=== PATIENT | male | born 1950 | race Caucasian/White ===

== ENCOUNTER → 2016-08-17 | Day surgery (SDC) | payer MEDICARE ==
[~2016-08-17] VITALS: Ht 180.3 cm; Wt 86.2 kg
[~2016-08-17] MED LIST: ACET-704 PO; AMLO5TAB2 PO; BUPIVACAINE MPF 0.5% 30 ML VIAL. ONE; DESFLURANE 61 TO 120 MINUTES IH ONE; DEXAMETHASONE SOD PHOS 20 MG/5 ML VIAL. ONE; ESMOLOL 100 MG/10 ML VIAL. IV ONE; HYDROcodone/APAP 5/325MG 1 TAB TABLET PO ONE; HYDROmorphone 2 MG/ML VIAL IV PRN; IBUP-1027 PO; IV RINGERS,LACTATED 1000ML 1,000 ML IV SCH; LIDOCAINE 1% 1 ML SYRINGE. ID PRN; LIDOCAINE 1% PF 30 ML VIAL. ONE; LIDOCAINE 2% PF Vial for OR 5 ML VIAL. ONE; LISI2.5T PO; MIDAZOLAM HCL/PF 2 MG/2 ML VIAL. ONE; MULT-460 PO; ONDANSETRON PF 4 MG/2 ML VIAL. IV PRN; ONDANSETRON PF 4 MG/2 ML VIAL. ONE; PHENYLEPHRINE in 0.9% NACL PF 1 MG/10 ML DISP.SYRIN. IV ONE; PROCHLORPERAZINE 10 MG/2 ML VIAL. IV PRN; PROPOFOL 20 ML IV ONE; fentaNYL PF VIAL 100 MCG/2 ML VIAL IV PRN; fentaNYL PF VIAL 100 MCG/2 ML VIAL ONE
--- NOTE | 2016-08-17 09:20 | DISCH ---
DISCHARGE INSTRUCTIONS Condition on Discharge Condition on Discharge: Stable Activity After Discharge Activity Instructions for Disc: No restrictions, Resume previous activity, Other, see below Other activity instructions: NWB RLE Bathing Instructions: Shower-keep dressing dry Weight Bearing Status after Di: Non weight bearing Diet after Discharge Diet after Discharge: Regular Wound Incision Care Wound/Incision Care: Ice to area for comfort, Keep wound/cast CDI, Keep wound elevated, Do not change dressing Contacting the DR. after DC Call your doctor for: Concerns you may have Follow-Up Follow up with: ARUNA Soares II, MD August 17, 2016 09:20
--- NOTE | 2016-08-17 09:22 | PDOC ---
BRIEF OPERATIVE NOTE Date: August 17, 2016 Pre-Op Diagnosis R distal fibula fx Post-Op Diagnosis same Procedure Performed ORIF R distal fibula fx Surgeon Gina Anesthesia Type: General, Local ARUNA SIMONS II, MD August 17, 2016 09:22
[2016-08-17] MEDS: fentaNYL PF VIAL 100 MCG/2 ML VIAL IV PRN ×2 (11:39→11:52)
[2016-08-17] MEDS: MORPHINE SULFATE 2 MG/ML DISP.SYRIN. IV PRN ×2 (11:39→11:52)
[2016-08-17 13:44] VITALS: BP 135/73
--- NOTE | 2016-08-17 14:09 | OP ---
DATE OF SURGERY: 08/17/2016 SURGEON: Gary Simons M.D. MARKETING OPERATIONS ASSOCIATE: None. PREOPERATIVE DIAGNOSIS: Displaced right distal fibula fracture. POSTOPERATIVE DIAGNOSIS: Displaced right distal fibula fracture. PROCEDURE PERFORMED: Open reduction and internal fixation right distal fibula fracture. FINDINGS: Stable syndesmosis on external rotation stress test intraoperatively. ESTIMATED BLOOD LOSS: 10 mL. TOURNIQUET TIME: 56 minutes. COMPONENTS INSERTED: [employer] distal fibula locking plate. COMPLICATIONS: None. REASON FOR PROCEDURE: The patient is a very pleasant 65-year-old gentleman who had a twisting injury to his right ankle several weeks ago. He tells me he popped it back into place, as his toes were pointing way out to the side after his fall. He was seen in an outside Emergency Department and referred to my nurse practitioner and followup radiographs demonstrated widening of his medial clear space and the distal fibula fracture. Therefore, I had a discussion of risks, benefits, alternatives of proceeding with the above surgery and he elected to proceed. DESCRIPTION OF PROCEDURE: The patient was greeted in the preoperative area by myself. Correct extremity was marked and verified. He was taken to the operative suite and antibiotics were started en route. Once in the OR, he was transferred gently supine to the OR table and secured to the bed with all pressure points padded. He had a large bump under his right hip. After successful induction of general anesthetic, we placed a nonsterile tourniquet to his right thigh and then proceeded to prep and drape right lower extremity in our usual sterile fashion and conducted a standard preoperative timeout. I then palpated, marked surface anatomy and dominick a line with the skin marker for my lateral incision over his distal fibula and incised skin with a scalpel and dissected subcutaneous tissue with combination of electrocautery and tenotomy scissors cauterizing bleeders as they were encountered. I incised this fascia in line with the skin incision. I identified the fracture site. I then used periosteal elevator above and below the fracture site over his distal fibula in anticipation of my plate application. I then used a combination of a small dental pick to distract the fracture site, and debrided the fracture site of early soft callus with a rongeur, curette and metal tip suction device. After I accomplished my debridement, I used direct pressure with my thumb over the distal fragment while performing some inversion and internal rotation facilitated by a [id number] reduction clamp. After achieving anatomic reduction under fluoroscopic imaging, I then placed a 3.5 screw in lag fashion across the fracture site. I left my [id number] in place and then sized per my plate and slightly contoured the plate to fit his bone. I then placed a 3.5 cortical screw above the fracture and one below the fracture to bring the plate down to bone. After this, I placed locking screws in the remainder of the distal holes and 2 more nonlocking screws proximal to the fracture site. I then performed an external rotation stress test after taking AP, lateral and oblique. There was no sinus syndesmotic injury. I then took my final images and was happy with the fracture reduction and hardware position. After accomplishing this, I then irrigated out the incision. Tourniquet was let down. Bleeders were cauterized. I then closed the fascia with simple interrupted #1 Vicryl followed by inverted interrupted 2-0 for subcutaneous tissue and 2-0 nylon in a horizontal mattress fashion. I then injected 10 mL of a local anesthetic mixture into the amanda-incisional area. The leg was then cleansed and dried and sterile dressing was applied followed by Steri-Strips. Xeroform gauze, right plain gauze and sterile cast padding. I then fashioned a well-padded AO splint to his right lower extremity. He was then awakened from anesthesia. He tolerated surgery well. Prior to completion of wound closure, all counts were reported correct x 2. No complications. Postop plan is for the patient to be discharged home. He will be nonweightbearing on right lower extremity. He was taken to PACU in stable and extubated condition. GARY SIMONS MD DR: JALEN/scarlet JOB#: [id number] / [id number]
== END | disposition home or self-care (01) ==
LOC: SURG 08:01
PROVIDERS: ATTEND Orthopaedic Surgery Sports Medicine
DX: S82.831A Other fracture of upper and lower end of right fibula, initial encounter for closed fracture (principal); X58.XXXA Exposure to other specified factors, initial encounter; Y93.89 Activity, other specified; Y92.89 Other specified places as the place of occurrence of the external cause; Y99.9 Unspecified external cause status; E78.00 Pure hypercholesterolemia, unspecified; I10 Essential (primary) hypertension; Z87.39 Personal history of other diseases of the musculoskeletal system and connective tissue
CPT/HCPCS: 27792; 76000; 97161; A4215; J0690; J0780; J1100; J2250; J2370; J2405; J2704; J3010; J3490; J7120; J2270